=== PATIENT | female | born 1990 | race Caucasian/White ===

== ENCOUNTER 2016-08-05 08:51 | Emergency (ER) | payer BC, OTHER ==
[~2016-08-05 08:51] MED LIST: LEVE500S PO; MONT10TA2 PO
[2016-08-05 08:53] VITALS: BP 107/55; TEMP 98.4; O2SAT 97
[2016-08-05] MEDS ORDERED: CLOB1SUS PO (09:19)
[2016-08-05] MEDS ORDERED: LEVE500S PO (09:19)
--- NOTE | 2016-08-05 09:27 | PD ---
HPI Chief Complaint: GI Complaint Time Seen by Provider: 09:09 Travel History International Travel<30 days: No Contact w/Intl Traveler<30days: No Traveled to known affect area: No History of Present Illness HPI The patient was seen and examined in the presence of the nurse and mother. Mother brings her 24-year-old for evaluation of constipation. She has history of cerebral palsy/mental retardation and is noncommunicative. She normally has a bowel movement every 2 days but has not had one in 7 days. Has not had vomiting today. Seems to eat without difficulty. Mother tried some prune juice and half of an enema and did not get much result. No alleviating factors. Duration one week PFSH Past Medical History Cancer: No Cardiovascular Problems: No Developmental Delay: Yes Diabetes: No Endocrine: No Gastrointestinal Disorders: Yes Genitourinary: No Hepatitis: No Hiatal Hernia: No Immune Disorder: No Medical other: Yes (SEIZURES) Musculoskeletal: Yes (OSTEOPENIA) Neurologic: Yes (EPILEPSY) Psychiatric: No Reproductive: No Respiratory: No Immunizations Current: Yes Seizures: Yes Thyroid Disease: No ?: Not Past Surgical History Ear Surgery: Yes (BILATERAL TUBES) Eye Surgery: Yes (EYE SURGERY AT 6 MONTHS OLD) Joint Replacement: No Pacemaker: No Social History Alcohol Use: No Tobacco Use: No Substance Use: No Allergies-Medications (Allergen,Severity, Reaction): Coded Allergies: Gluten (Verified Allergy, Unknown, 08/05/16) Reported Meds & Prescriptions Reported Meds & Active Scripts Active Reported Onfi Liq (Clobazam) 2.5 Mg/Ml Susp 1 Ml PO BID Keppra Liq (Levetiracetam) 500 Mg/5 Ml Soln 4.5 Ml PO BID Review of Systems General / Constitutional: No: Fever Eyes: No: Visual changes HENT: No: Headaches Cardiovascular: No: Chest Pain or Discomfort Respiratory: No: Shortness of Breath Gastrointestinal: Positive: Constipation, No: Abdominal Pain Genitourinary: No: Dysuria Musculoskeletal: No: Pain Skin: No Rash Neurologic: No: Weakness Psychiatric: No: Depression Endocrine: No: Polydipsia Hematologic/Lymphatic: No: Easy Bruising Physical Exam Narrative GASTROINTESTINAL: Abdomen soft, non-tender, nondistended. Decreased but Positive bowel sounds. No hepato-splenomegaly, or palpable masses. No guarding. Rectal: Normal tone, no mass. No impaction. Scant soft stool in the vault. SKIN: Inspection shows no rash or ulcers. Palpation shows no induration or nodules. Data Data Last Documented VS Vital Signs Date Time Temp Pulse Resp B/P Pulse Ox O2 Delivery O2 Flow Rate FiO2 08/05/16 11:22 70 18 131/61 100 Room Air 08/05/16 08:53 98.4 Orders Abdomen, Single View (08/05/16 ) MDM Medical Decision Making Medical Screen Exam Complete: Yes Emergency Medical Condition: Yes Medical Record Reviewed: Yes Differential Diagnosis Constipation, ileus, obstruction Narrative Course I have reviewed the patient's electronic medical record. She has a soft benign nontender abdomen I reviewed her abdominal x-ray which is normal with a benign and nonspecific pattern. No intestinal dilation with air all the way to the rectum Mother would like some sort of prescription for constipation. I wrote 5 doses of lactulose discussed fiber supplement Recommend a follow-up with her own GI physician for this Diagnosis Primary Impression: Constipation by delayed colonic transit Additional Instructions: The patient was advised to follow up with their physician and return if they worsen. Med/Other Pt SpecificInfo: Prescription(s) given Scripts Lactulose Liq 10 Gm/15 Ml Soln30 Ml PO Q6H PRN (CONSTIPATION) #150 ML Ref 0 Prov:Deonte Esteban MD 08/05/16 Disposition: 01 DISCHARGE HOME Condition: Stable Deonte Esteban MD Aug 05, 2016 09:27
--- NOTE | 2016-08-05 10:05 | RADRPT ---
EXAM DATE/TIME: 08/05/2016 09:59 [facility] COMPARISON: No previous studies available for comparison. INDICATIONS : Constipation and abdominal pain. MEDICAL HISTORY : None. SURGICAL HISTORY : None. ENCOUNTER: Initial ACUITY: 1 week PAIN SCORE: 8/10 LOCATION: Abdomen. FINDINGS: Examination of the abdomen demonstrates a normal bowel gas pattern. No free air is identified. No o rganomegaly is evident. Osseous structures are intact. CONCLUSION: Nonspecific, benign abdomen appearance. Michael Noble MD on August 05, 2016 at 10:03 Board Certified Radiologist. This report was verified electronically.
[2016-08-05 11:22] VITALS: BP 131/61; PULSE 70; RESP 18; O2SAT 100
[2016-08-05] MEDS ORDERED: LACT10SO PO (11:36)
== END 2016-08-05 11:51 | disposition home or self-care (01) ==
LOC: NEPC 08:51
DX: K59.01 Slow transit constipation (principal); F79 Unspecified intellectual disabilities; G80.9 Cerebral palsy, unspecified
CPT/HCPCS: 74000; 99283

== ENCOUNTER → 2016-09-26 | Outpatient (CLI) | payer OTHER, MEDICAID ==
[~2016-09-26] MED LIST changes: +CLOB1SUS PO; +DIATRIZOATE MEGLUM/DIATRIZOATE SOD 120 ML BTL (for RAD DIAG) RECTAL ONE; +LACT10SO PO; -MONT10TA2 PO
--- NOTE | 2016-09-26 17:10 | RADRPT ---
EXAM DATE/TIME: 09/26/2016 13:04 [facility] COMPARISON: No previous studies available for comparison. INDICATIONS : Constipation, no normal bowel movement for at least 2 weeks, often swallows foreign bodies FLUORO TIME: 1.2 minutes IMAGE COUNT: 16 CONTRAST: 1. [facility] MEDICAL HISTORY : Constipation SURGICAL HISTORY : None. ENCOUNTER: Initial ACUITY: 2 weeks PAIN SCORE: Non-responsive. LOCATION: Bilateral abdomen FINDINGS: Preliminary assistant counsel film is unremarkable. I see no radiopaque foreign bodies. Gastrografin was instilled throughout the entire length of the colon. There are no constricting or obstructing lesions identified. A large amount of stool is evident. On post evacuation film there is little emptying of contrast from the colon. CONCLUSION: 1. A large amount of stool throughout the colon. 2. I see no unexpected foreign bodies. Jossue Concepcion MD FACR on September 26, 2016 at 16:24 Board Certified Radiologist. This report was verified electronically.
== END ==
LOC: HRAD 10:35
DX: K59.00 Constipation, unspecified (principal)
CPT/HCPCS: 74270; Q9963